=== PATIENT | male | born 1945 | race Caucasian/White ===

== ENCOUNTER 2021-01-24 10:49 | Outpatient (RCR) | payer MEDICARE, OTHER, SELFPAY | END 2021-01-24 23:59 | LOC: IMMUN 10:49 | PROVIDERS: PCP Nurse Practitioner Family; Referring Provider Family Medicine; Visit Provider Family Medicine | DX: Z23 Encounter for immunization (principal) | CPT/HCPCS: 0011A; 0012A; 91301 ==

== ENCOUNTER → 2021-05-31 10:41 | Outpatient (CLI) | payer MEDICARE, OTHER, SELFPAY ==
[2021-05-31 10:59] LABS: Bacteria 0 SEEN /hpf (None Seen); Mucous, Urine 0 SEEN /hpf (<or=2+); Red Blood Cells-Urine 0 SEEN /hpf (0-5); Squamous Epithelial Cells - UA 0 SEEN /hpf (0-5); White Blood Cells 0 SEEN /hpf (0-5)
[2021-05-31 11:16] LABS: Color, Urine Yellow (Yellow); Glucose, Dipstick Normal (Normal); Ketone-Dipstick Negative (Negative); Leukocyte Esterase-Dipstick 25 /ul (Negative); Nitrite-Dipstick Negative (Negative); Occult Blood-Urine 10 /ul (Negative); Protein-Dipstick Negative (Negative); Urine Bilirubin Dipstick Negative (Negative); Urine Clarity Clear (Clear); Urine Urobilinogen 1 mg/dl (Normal)
== END ==
LOC: LAB.FUTURE 10:44 → LABSPEC 10:47
PROVIDERS: PCP Nurse Practitioner Family; Visit Provider Nurse Practitioner Adult Health
DX: R31.9 Hematuria, unspecified (principal)
CPT/HCPCS: 81001

== ENCOUNTER 2021-07-09 10:31 | Outpatient (RCR) | payer MEDICARE, OTHER, SELFPAY ==
--- NOTE | 2021-07-09 11:42 | HP.SP.AD ---
History - History Date of Eval: 07/09/21 Medical Diagnosis (from RX): CVA Date of Onset of Diagnosis: June 11, 2021 Previous speech therapy: Yes Results: While in [facility], dysphagia evaluation- regular diet/thin liquids. Possibly evaluations by speech therapy but patient and are unsure. Other Relevant Medical History/Diagnoses/Surgery: Patient went to [facility] as was life flighted to [facility] and spent 9 days there. Previously he had a TIA 10 years ago with no deficits. Medications related to this diagnosis: lipitor, aspirin, Plavix - Pain Is pain an issue with your current prescribed condition?: No - Personal Occupation: Retired Right Hearing Abillity: Normal Left Hearing Abillity: Normal Visual Assistive Devices: Glasses Patients Living Arrangements: With Significant Other Subjective Cog/Ling/Com - Subjective Cognitive/Linguistic/Communication: The patient's has no concerns regarding thinking skills. She reported that he is able to do all things he did prior to CVA. Objective Cog/Ling/Com - Test Administered Ihbyrydlp-Chrfwybnrw-Kdhyrchvuftvy Assessment Administered: Yes Dtehabnlg-Gcmcoebtmi-Pfbronrdwjrez Assessment: Cognitive ? Linguistic skills were evaluated using patient/family interview, skilled observation and informal evaluation through tasks completed by the patient. - Orientation Orientation: Person, Date, Birthdate, Medical Diagnosis - Answer Yes/No Questions Simple: WNL Complex: WNL - Conversational Tasks Conversational Tasks: WNL - Comments Comments: Patient reports occasional word finding deficits in which he can self correct. - Medication Completing medications independently: WNL - Numerical Skills Balancing Checkbook [place]: reported that he is completing financial tasks without difficulty. - Problem Solving Simple: WNL Complex: WNL - Judgement & Reasoning Judgement/Reasoning: WNL - Cognitive Linguistic Supervision/Saftey Awareness of deficits: WNL Being left home alone: WNL Managing medications: WNL Managing finances: WNL Subjective Dysarthria/Motor - Subjective Subjective: Patient reported right sided weakness while in the hospital. Objective Dysarthira/Motor - Speech Intelligibility Single Words: WNL Sentences: WNL Conversation: WNL - Volume Volume: WNL - Sounds Sounds in Error: No errors noted at any time. - Observation Observation of Apraxia of Speech: No Oral Groping for Placement: No Inconsistent Errors: No - Comments Comments -: Patient stated while in [facility] he had mild dysarthria. He states that it has resolved and during today's evaluation no dysarthria was noted. Plan - Plan Plan: No therapy is recommended at this time as patient's skills are within normal limits. - Recommendations Treatment Warranted: No Education - Patient Instruction Patient Education: Diagnosis Person Taught: Patient, Family Teaching Method: Discussion Response to teaching: Verbalize understanding
== END 2021-07-09 19:00 | disposition home or self-care (01) ==
LOC: SP 10:31
PROVIDERS: PCP Family Medicine
DX: R13.10 Dysphagia, unspecified (principal); R47.01 Aphasia; Z86.73 Personal history of transient ischemic attack (TIA), and cerebral infarction without residual deficits
CPT/HCPCS: 92523

== ENCOUNTER → 2021-08-20 16:52 | Outpatient (CLI) | payer MEDICARE, OTHER, SELFPAY ==
--- NOTE | 2021-08-20 | IMM_PTH ---
PATIENT: AKHIL SMYTH LOC: [facility] U#:[id number] AGE/SX: 80/M ROOM: RE08/20/[address]: Dr. Wilbert Mohan MD : 1945 BED: DIS: SPEC #: [id number] RECD: 08/22/21 11:49 STATUS: KOLBY RERoselia #: [id number] JOHNNY: 08/20/21 00:[address]: Wilbert Mohan DEPT: IMMUNOHISTOCHEMISTRY RECD BY: Carlee Garcia ENTERED: 08/22/21 11:51 SP TYPE: IMMUNO OTHR DR: Dr. Eugenio Leal DO Tissues: B - PROSTATE RIGHT F - PROSTATE LEFT Procedures: 34BE12 (add) P40 (add) 34BE12 (initial) PHYSICIAN & INSTITUTION [place] [id number] SPECIMEN INFORMATION: Tissue Source: B - Right prostate, mid, core biopsy, F - Left prostate, base, core biopsy Clinical Info: Elevated PSA Specimen Number: [id number] B & F CPT code: 89124, 08897 x3 METHODOLOGY: Deparaffinized sections of prefer/formalin-fixed tissue or PAP/DQ stained slides are incubated with monoclonal/polyclonal antibodies/oligonucleotide probes. Localization is made via biotin free immunoperoxidase method. Appropriate controls are performed and reacted as expected. Results on target cell population are indicated in the following table: RESULTS: ANTIBODY / CLONE RESULT Block B P40 (BC28) negative 34BE12 (34BE12) negative Block F P40 (BC28) negative 34BE12 (34BE12) positive These tests were developed and their performance characteristics determined by [facility]. They may not have been cleared or approved by the U.S. Food and Drug Administration. The FDA has determined that such clearance or approval is not necessary. The above immunohistochemical/dualISH markers are ordered and reviewed by the Pathologist. INTERPRETATION: B. Right prostate, mid, core biopsy: Adenocarcinoma. F. Left prostate, base, core biopsy: Focal atypical small acinar proliferation. AM:juvenal 08/23/2021 Case has been reviewed in consultation with Dr. Sexton who concurs with the above diagnosis. IDC:LEVI
--- NOTE | 2021-08-20 08:00 | PROSBIL_PTH ---
PATIENT: AKHIL SMYTH LOC: [facility] U#:[id number] AGE/SX: 80/M ROOM: RE08/20/[address]: Dr. Wilbert Mohan MD : 1945 BED: DIS: SPEC #: [id number] RECD: 08/21/21 10:15 STATUS: KOLBY MARLYS #: [id number] JOHNNY: 08/20/21 08:[address]: Wilbert Mohan DEPT: SURGICAL PATHOLOGY RECD BY: Rogelio Dunham ENTERED: 08/21/21 10:18 SP TYPE: PROST BX YOSEPH DR: Dr. Eugneio Leal DO Tissues: A - PROSTATE RIGHT B - PROSTATE RIGHT C - PROSTATE RIGHT D - PROSTATE LEFT E - PROSTATE LEFT F - PROSTATE LEFT Procedures: PROSTATE BX HEADER OPERATION: Prostate biopsy PRE-OP DIAGNOSIS: R97.20 TISSUE SUBMITTED: A - Right apex, B - Right mid, C - Right base, D - Left apex, E - Left mid, F - Left base MICROSCOPIC DIAGNOSIS A. Right prostate, apex, core biopsy: Adenocarcinoma. [place] grade: 7 (3+4) Cores involved: 1 out of 1 core Tissue involved: 45% Greatest tumor length: 4 millimeters B. Right prostate, mid, core biopsy: Adenocarcinoma. Chandler grade: 6 (3+3) Cores involved: 1 out of 1 core Tissue involved: 10% Greatest tumor length: 2.5 millimeters See comment. C. Right prostate, base, core biopsy: Adenocarcinoma. [place] grade: 7 (3+4) Cores involved: 1 out of 1 core Tissue involved: 45% Greatest tumor length: 4 millimeters Perineural invasion: Present D. Left prostate, apex, core biopsy: Benign prostatic tissue. E. Left prostate, mid, core biopsy: Benign prostatic tissue. F. Left prostate, base, core biopsy: Focal glandular atrophy. See comment. AM:juvenal 08/22/2021 COMMENT B & F - Immunohistochemistry ([id number]) supports the above diagnosis. Case has been reviewed in consultation with Dr. Sexton who concurs with the above diagnosis. IDC:LEVI MICROSCOPIC DESCRIPTION Slides are reviewed. GROSS DESCRIPTION A - Received is one container designated prostate, right apex. The specimen consists of one elongated fragment of light jones-white soft tissue measuring 1.5 cm in length and 0.1 cm in diameter. The specimen is totally submitted in one cassette. B - Received is one container designated prostate, right mid. The specimen consists of one elongated fragment of light jones-white soft tissue measuring 1 cm in length and 0.1 cm in diameter. The specimen is totally submitted in one cassette. C - Received is one container designated prostate, right base. The specimen consists of one elongated fragment of light jones-white soft tissue measuring 1.2 cm in length and 0.1 cm in diameter. The specimen is totally submitted in one cassette. D - Received is one container designated prostate, left apex. The specimen consists of one elongated fragment of light jones-white soft tissue measuring 1.1 cm in length and 0.1 cm in diameter. The specimen is totally submitted in one cassette. E - Received is one container designated prostate, left mid. The specimen consists of one elongated fragment of light jones-white soft tissue measuring 1 cm in length and 0.1 cm in diameter. The specimen is totally submitted in one cassette. F - Received is one container designated prostate, left base. The specimen consists of one elongated fragment of light jones-white soft tissue measuring 1.1 cm in length and 0.1 cm in diameter. The specimen is totally submitted in one cassette. / SJ:rg 08/21/21 TC:0 CPT: G0146
== END ==
PROVIDERS: PCP Family Medicine; Visit Provider Urology
DX: R97.20 Elevated prostate specific antigen [PSA] (principal)
CPT/HCPCS: 88305; 88341; 88342; G0416

== ENCOUNTER → 2021-09-05 07:18 | Outpatient (CLI) | payer MEDICARE, OTHER, SELFPAY ==
--- NOTE | 2021-09-05 07:21 | CT_ITS ---
STUDY: CT PELVIS WITH CONTRAST REASON FOR EXAM: Male, 76 years old. PROSTATE CA RADIATION DOSAGE (If Supplied By Facility): CTDIvol = ( 15.54 ) mGy, DLP = ( 557.05 ) mGycm TECHNIQUE: Transaxial imaging of the pelvis was performed without oral contrast. IV 100mL Isovue-370 was administered intravenously. Individualized dose optimization techniques were used for this CT. COMPARISON: None. FINDINGS: Areas of increased attenuation/ visualized along the periphery of the prostate gland best visualized on coronal series 601 image 16 ill-defined 1.9 cm area of enhancement visualized within the center of the prostate gland visualized on axial series 2 image 59. Mild irregularity in the contour of the prostate gland but no evidence of stranding of the adjacent fat planes is visualized. No evidence of masses or stranding of the ischiorectal fossa bilaterally. No evidence of lymphadenopathy in the adjacent pelvic soft tissues. The seminal vesicles are unremarkable bilaterally. Unremarkable attenuation of the fat planes medial to the pelvic ceja. No evidence of prominent lymph nodes along the iliac vessels. No evidence of retroperitoneal lymph nodes is seen. No evidence of lytic or sclerotic bone lesion is seen, degenerative bone changes are seen. Subtle bilateral inguinal lymph nodes are visualized largest on the left inguinal region measuring 1.6 cm but demonstrates a fatty hilum seen on axial series 2 image 58. Mild thickening of the wall of the urinary bladder is visualized but no evidence of irregularity in its contour to suggest a wall mass. Scattered diverticular disease visualized in the large bowel but no evidence of acute diverticulitis is seen. Small bowel loops are unremarkable. No evidence of masses in the peritoneal fat planes. 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 CT/Pelvis WITH IV Contrast IMPRESSION: Areas of increased enhancement visualized within the prostate gland with irregularity in contour of the prostate gland consistent with the diagnosis of prostate cancer. No evidence of adjacent lymphadenopathy or masses, no evidence of distant lymph nodes or masses. No evidence of bone lesions. Electronically Signed: Wyatt Shelley MD at 11:25 EDT Tel , Service support ,
[2021-09-05 07:35] LABS: CREATININE FINGERSTICK 0.8 mg/dL (0.70-1.30); EGFR FINGERSTICK > 60.0000 mL/min (>60)
== END ==
PROVIDERS: PCP Family Medicine; Referring Provider Urology; Visit Provider Urology
DX: C61 Malignant neoplasm of prostate (principal)
CPT/HCPCS: 72193; Q9967

== ENCOUNTER → 2021-09-10 08:22 | Outpatient (CLI) | payer MEDICARE, OTHER, SELFPAY ==
--- NOTE | 2021-09-10 08:41 | NM_ITS ---
CLINICAL: 76-year-old male with reported history of carcinoma of the prostate. WHOLE BODY 99m Tc MDP RADIONUCLIDE BONE SCINTIGRAPHY COMPARISON: CT of the pelvis report 09/05/2021 FINDINGS: Following the intravenous administration of 25.6 mCi of 99m Tc MDP, whole body bone images reveal: 1. Increased radiopharmaceutical concentration is demonstrated in the glenohumeral, acromioclavicular and sternoclavicular compartments of both shoulders, fourth and fifth lumbar vertebra, the right knee, the right ankle, right posterior ninth and 10th ribs at the costovertebral junction. 2. The remaining skeletal structures are scintigraphically unremarkable with normal-appearing renal images and urinary bladder activity identified. A presumably asymptomatic left knee arthroplasty is demonstrated with accentuated distal tibial component uptake identified most consistent with normal postsurgical change. NM/Bone Scan Whole Body IMPRESSION: 1. The increase in radiopharmaceutical concentration observed in the bilateral shoulders, lower lumbar spine, right knee, right ankle, the ninth and 10th thoracic vertebra is most consistent with degenerative arthritis. 2. There is no definitive typical scintigraphic evidence of diffuse axial skeletal metastatic disease on the current examination. Electronically Signed: Armand Silva DO at 21:17 EDT Tel , Service support ,
== END ==
PROVIDERS: PCP Family Medicine; Referring Provider Urology; Visit Provider Urology
DX: C61 Malignant neoplasm of prostate (principal)
CPT/HCPCS: 78306; A9503

== ENCOUNTER → 2021-09-20 10:18 | Outpatient (CLI) | payer MEDICARE, OTHER, SELFPAY ==
--- NOTE | 2021-09-20 10:45 | MRI_ITS ---
MR Prostate WO/W Contrast 09/20/2021 10:45 AM COMPARISON: None CLINICAL HISTORY: 76 yo man with known prostate Ca TECHNIQUE: Standard prostate MRI protocol was used with 18 cc of IV Dotarem. FINDINGS: Prostate volume: 14.9 cc Length of membranous urethra: 9 mm Post-biopsy hemorrhage: Yes Multiparametric MR evaluation: Heterogeneous appearance of the central gland is consistent with benign prostatic hyperplasia. Lesion 1: LOCATION - 1.3 x 1 cm T2 hypointense lesion in the right posterolateral peripheral zone at the base (image 15, series 5). T2 - PIRADS 4 DWI - PIRADS 4 DCE - positive Overall PI-RADS v2 score = PIRADS 4 Capsular margin and neurovascular bundle: No definite extracapsular extension. Seminal vesicles: No definite involvement. Lymph nodes: No lymphadenopathy in the field of view. Bones: No suspicious lesions in the field of view. MRI/Pelvis W/WO Contrast IMPRESSION: 1.3 cm T2 hypointense lesion in the right posterolateral PZ near the base with increased signal on DWI and decreased signal on ADC consistent with a PI-RADS 4 lesion. However, this area is also bright on T1 weighted imaging signifying post-biopsy hemorrhage, which can also exhibit the same characteristics as prostate cancer. There are two other areas of post-biopsy hemorrhage as well. No lymphadenopathy. Electronically Signed: Vince Goetz MD at 22:11 EDT Tel , Service support ,
== END ==
PROVIDERS: PCP Family Medicine; Referring Provider Urology; Visit Provider Urology
DX: C61 Malignant neoplasm of prostate (principal)
CPT/HCPCS: 72197; A9575

== ENCOUNTER 2021-10-12 12:47 | Day surgery (SDC) | payer MEDICARE, OTHER, SELFPAY ==
[2021-10-12 13:20] VITALS: BP 182/67; PULSE 72; RESP 18; TEMP 36.3; O2SAT 100; BMI 22.4
[2021-10-12] MEDS: Lactated Ringers 1,000 ML 15 ML IV (13:20)
[2021-10-12] MEDS: Cefazolin 2 GM in 0.9% Normal Saline 100 ML IV (15:45)
--- NOTE | 2021-10-12 15:58 | HP.PCM_ITS ---
HPI - General HPI Narrative AKHIL SMYTH, is a 76 M who presents for placement of spacer gel and gold markers, planning treatment for prostate ca with XRT [facility] Medical History (Updated 10/10/21 @ 14:[address] Elias Gill DO) Cancer Cardiology follow-up encounter Former smoker High cholesterol History of atrial fibrillation History of echocardiogram History of stress test Hypertension Injury of head and neck Stroke/cerebrovascular accident Thyroid disease Wears glasses Home Medications aspirin 81 mg tablet,delayed release 81 mg PO DAILY 10/01/21 [History Last Taken Unknown] coenzyme Q10 10 mg capsule 10 mg PO ONCE 10/01/21 [History Last Taken Unknown] folic acid 20 mg capsule 20 mg PO DAILY 10/01/21 [History Last Taken Unknown] levothyroxine 100 mcg capsule 100 mcg PO DAILY 10/01/21 [History Last Taken Unknown] multivitamin 1 tab PO DAILY 10/01/21 [History Last Taken Unknown] rosuvastatin 5 mg tablet 5 mg PO DAILY 10/01/21 [History Last Taken Unknown] tumeric 100 mg-keanu 150 mg-olive 50 mg-oreg 150 mg-caprylate capsule 1 cap PO DAILY 10/01/21 [History Last Taken Unknown] lorazepam 0.5 mg tablet 0.5 mg PO DAILY PRN #2 tab 10/10/21 [Rx Last Taken Unknown] ciprofloxacin HCl [Cipro] 500 mg PO BID #10 tab 10/12/21 [Rx Last Taken Unknown] Allergy/AdvReac Type Severity Reaction Status Date / Time No Known Allergies Allergy Verified 10/09/21 10:36 Family History (Updated 10/01/21 @ 13:16 by Yaneth March RN) Brother Cancer PROSTATE Brother Heart disease Surgical History (Updated 10/09/21 @ 10:46 by Charlotte Palacios) History of cardiac catheterization History of total knee replacement (TKR) Hx of colectomy Hx of heart artery stent Hx of heart bypass surgery Social History (Updated 10/01/21 @ 13:14 by Yaneth March RN) adopted: No household members: spouse housing: house Smoking Status: Former smoker Tobacco: How many years used: 15 second hand exposure: No Vital Signs Vital Signs Vital Signs: 10/12/21 13:20 Temperature 97.4 F L Temperature Source Temporal Pulse Rate 72 Respiratory Rate 18 Respiratory Pattern Normal Blood Pressure 182/67 H Blood Pressure Mean 105 Blood Pressure Source Monitor Blood Pressure Position Sitting Blood Pressure Location Left Arm Pulse Ox 100 Oxygen Delivery Method Room Air Weight Weight: 71 kg Body Mass Index (BMI) 22.4
--- NOTE | 2021-10-12 15:59 | PCM.DC ---
Discharge Instructions Diet Discharge Diet: No restrictions Activity Discharge Activity: Return to Normal Activity and May Not Drive (while taking narcotic pain medications.) Dressing / Incision Call your doctor if you observe: Fever of 101 or Higher Follow Up Care Please Follow Up With: Wilbert Mohan MD When: Call [phone] for an appointment Test Results: Test results from this visit will be discussed in further detail at your follow-up appointment, if applicable. Discharge Plan Admission Primary Reason for Your Visit: gold markers and spacer gel Attending Provider: Wilbert Mohan Primary Care Provider: Eugenio Leal Discharge Orders/Prescriptions Prescriptions: New ciprofloxacin HCl [Cipro] 500 mg tablet 500 mg PO BID Qty: 10 RF: 0 Continued levothyroxine 100 mcg capsule 100 mcg PO DAILY RF: 0 rosuvastatin [Crestor] 5 mg tablet 5 mg PO DAILY RF: 0 aspirin 81 mg tablet,delayed release (DR/EC) 81 mg PO DAILY RF: 0 multivitamin Tablet 1 tab PO DAILY RF: 0 coenzyme Q10 [Co Q-10] 10 mg capsule 10 mg PO ONCE RF: 0 othrhla-lbpf-ruewf-oreg-capryl 100 mg-150 mg- 50 mg-150 mg capsule 1 cap PO DAILY RF: 0 folic acid 20 mg capsule 20 mg PO DAILY RF: 0 lorazepam [Ativan] 0.5 mg tablet 0.5 mg PO DAILY PRN (Reason: pre-procedure anxiety) Qty: 2 RF: 0 Referrals / Follow Up: Eugenio Leal DO [Primary Care Provider] - Wilbert Mohan MD [STAFF PHYSICIAN] - Disposition Disposition (needs filled in before D/C Order can be placed): Home, Self Care
--- NOTE | 2021-10-12 15:59 | PCM.OPRPT ---
Report of Operation Date of Procedure: 10/12/21 Pre-Operative Diagnosis: prostate cancer Post-Operative Diagnosis: same Surgery/Procedure Performed:: placement of gold fiducial markers for radiation therapy and spacer gel matrix per request of radiation oncology. Description of Surgical Findings:: The penis and testicles were prepped and draped in usual sterile fashion, ultrasound probe was placed into the rectum and biplanar ultrasound was performed on the prostate. Identified the base mid and apex of the prostate identified the transition zone prostate. Then using a needle the first lift supervisor was placed into the right base of the prostate, the second lift supervisor was placed in the left base of the prostate, and the third core marker was placed in the right apex of the prostate after all 3 markers were placed the placement of the markers were confirmed by ultrasonography. I then introduced a biplanar ultrasound probe into the rectum and performed ultrasonography and identified the Denonvilliers' fascia the prostate mid base and apex and seminal vesicles. The spacer gel mix was then prepared on the back table per manufactures instruction. Under ultrasound guidance in the midline perineum a bevel needle down we advanced through the perineum below the prostate into the space of Denonvilliers' fascia. This space which could be identified by ultrasound with a bright white layer between the prostate and the rectum. I then injected a puff of normal saline to identify the space further. After I confirmed that the needle was in the correct space in the mid prostate and the space of Denonvilliers' fascia between the rectum and the prostate. Then over the course of 15 seconds the gel matrix was injected slowly there was nice separation between the prostate and the rectum at the gel matrix was injected. The position of the gel matrix was confirmed by ultrasound. Then the injection needle was removed intact. Patient's perineum was cleaned patient was taken out of stirrups and then taken back to the PACU in good condition. Surgeon: álvaro Type of Anesthesia: General Admit VTE Documentation VTE Present on Admission: No VTE Mechan Device Prophylaxis: SCD's VTE Pharm Prophylaxis ordered?: No
[2021-10-12 16:10] VITALS: BP 155/72; BP 182/67; PULSE 61; RESP 16; TEMP 36; O2SAT 97
[2021-10-12 16:15] VITALS: BP 152/73; BP 182/67; PULSE 61; RESP 16; O2SAT 97
[2021-10-12 16:26] VITALS: BP 168/74; BP 182/67; PULSE 58; RESP 16; O2SAT 98
[2021-10-12 16:45] VITALS: BP 168/72; BP 182/67; PULSE 56; RESP 16; TEMP 36; O2SAT 99
[2021-10-12 17:19] VITALS: BP 157/57; BP 182/67; PULSE 58; RESP 16; TEMP 36.1; O2SAT 100
== END 2021-10-12 17:21 | disposition home or self-care (01) ==
LOC: SDC 12:48 → AC 12:50
PROVIDERS: PCP Family Medicine; Referring Provider Urology; Visit Provider Urology
PROC: (CPT 55874; principal; 2021-10-12 14:35)
DX: C61 Malignant neoplasm of prostate (principal); E07.9 Disorder of thyroid, unspecified; E78.00 Pure hypercholesterolemia, unspecified; I10 Essential (primary) hypertension; I48.91 Unspecified atrial fibrillation; Z79.82 Long term (current) use of aspirin; Z87.891 Personal history of nicotine dependence; Z86.73 Personal history of transient ischemic attack (TIA), and cerebral infarction without residual deficits; Z90.49 Acquired absence of other specified parts of digestive tract; Z96.659 Presence of unspecified artificial knee joint
CPT/HCPCS: 00902; 55876; J7120; J2405

== ENCOUNTER → 2021-10-20 08:03 | Outpatient (CLI) | payer MEDICARE, OTHER, SELFPAY ==
--- NOTE | 2021-10-20 08:04 | MRI_ITS ---
INDICATION: treatment planning for radiation therapy EXAMINATION: MRI - MR Pelvis Male W/O Contrast TECHNIQUE: Multiplanar and multisequence MR images were performed of the pelvis for radiation planning purposes. . IV Contrast Dosage and Agent: None. COMPARISON: 18 October 2021 and 20 September 2021 FINDINGS: Please refer to prior diagnostic MR of the pelvis/prostate for diagnostic information. This is a treatment planning scan with general survey of the pelvis. As per prior report there is a nodule in the right posterior peripheral zone. Pelvic soft tissues are normal. Skeletal pelvis is intact. There is no pelvic lymphadenopathy. MRI/Pelvis (Routine) IMPRESSION: Radiation planning scan of the pelvis for prostate cancer. Refer to prior for diagnostic description. Electronically Signed: Giorgio Murphy MD at 20:36 EST Tel , Service support ,
== END ==
PROVIDERS: PCP Family Medicine; Referring Provider Student in an Organized Health Care Education/Training Program; Visit Provider Student in an Organized Health Care Education/Training Program
DX: C61 Malignant neoplasm of prostate (principal)
CPT/HCPCS: 72195

== ENCOUNTER → 2023-12-03 | Outpatient (CLI) | payer MEDICARE, OTHER, SELFPAY ==
[2023-12-03 11:23] LABS: Anion Gap 2 (5-15); BUN 17 mg/dL (7-18); BUN/Creat Ratio 16.5 RATIO (10-20); Calcium,Total 9.5 mg/dL (8.5-10.1); Chloride 104 mmol/L (98-107); Creatinine, Serum 1.03 mg/dL (0.70-1.30); EST Glomerular Filtration Rate 75 mL/min (>60); Est Glom Filt Rate - Afr Amer 90 mL/min (>60); Glucose 97 mg/dL (74-106); Potassium 4.1 mmol/L (3.5-5.1); Sodium Level 136 mmol/L (136-145)
== END | disposition home or self-care (01) ==
LOC: PAVLAB 10:24
PROVIDERS: PCP Family Medicine; Referring Provider Surgery; Visit Provider Surgery
DX: I71.40 Abdominal aortic aneurysm, without rupture, unspecified (principal)
CPT/HCPCS: 36415; 80048

== ENCOUNTER 2024-06-10 09:00 | Day surgery (SDC) | payer MEDICARE, OTHER, SELFPAY ==
--- NOTE | 2024-06-10 09:07 | EKG12_ITS ---
Test Reason : PREOP Blood Pressure : / mmHG Vent. Rate : 064 BPM Atrial Rate : 064 BPM P-R Int : 236 ms QRS Dur : 082 ms QT Int : 406 ms P-R-T Axes : 086 067 118 degrees QTc Int : 418 ms Sinus rhythm with 1st degree A-V block Septal infarct , age undetermined ST & T wave abnormality, consider lateral ischemia Abnormal ECG Confirmed by Bridger Wolfe ([id number]), web content editor MARCELINO SCHMIDT ([id number]) on 06/11/2024 6:23:26 AM Referred By: Louis Mario Confirmed By:Bridger Wolfe
[2024-06-10 10:34] LABS: Hemoglobin 14.2 g/dL (13.0-16.5); Mean Corp Hgb Conc 33.8 g/dL (32-36); Mean Corpuscular Hgb 32.9 pg (27.0-32.0); Mean Corpuscular Volume 97.2 fL (80-94); Mean Platelet Vol. 10.3 fl (6.2-12.0); Platelet Count 217 K/mm3 (150-450); RBC Distribution Width SD 46.5 fl (35.1-43.9); Red Blood Count 4.32 M/mm3 (4.6-6.2); White Blood Count 7.7 K/mm3 (4.4-11.0)
[2024-06-10 11:00] LABS: Anion Gap 3 (5-15); BUN 20 mg/dL (7-18); BUN/Creat Ratio 20.2 RATIO (10-20); Chloride 104 mmol/L (98-107); Creatinine, Serum 0.99 mg/dL (0.70-1.30); EST Glomerular Filtration Rate 78 mL/min (>60); Est Glom Filt Rate - Afr Amer 94 mL/min (>60); Glucose 91 mg/dL (74-106); Sodium Level 136 mmol/L (136-145)
[2024-06-10 11:44] LABS: Thyroid Stim Hormone (TSH) 0.76 uIU/mL (0.358-3.74)
== END 2024-06-14 10:35 | disposition home or self-care (01) ==
LOC: SDC 02-02 16:20
PROVIDERS: Anesthesiology; PCP Family Medicine; Referring Provider Surgery Trauma Surgery; Visit Provider Surgery Trauma Surgery
DX: Z01.812 Encounter for preprocedural laboratory examination (principal); Z01.810 Encounter for preprocedural cardiovascular examination; Z01.818 Encounter for other preprocedural examination; Z53.9 Procedure and treatment not carried out, unspecified reason; R94.31 Abnormal electrocardiogram [ECG] [EKG]; I44.0 Atrioventricular block, first degree
CPT/HCPCS: 36415; 80048; 84443; 85027; 86850; 86900; 86901; 93005

== ENCOUNTER → 2025-02-16 | Outpatient (CLI) | payer MEDICARE, OTHER, SELFPAY ==
--- NOTE | 2025-02-16 08:58 | ART_ITS ---
Reason For Study Reason For Study: S/P EVAR Procedure A bilateral lower extremity continuous wave Doppler with analog waveform analysis and ankle brachial indexes. Left Segmental Pressures Left brachial= 190mmHg. Left posterior tibial artery = 215mmHg. Left dorsalis pedis artery = 210mmHg. Left digit = 117 mmHg. The left dorsalis pedis waveforms are triphasic. The left posterior tibial artery waveforms are triphasic. Right Segmental Pressures Right brachial= 196mmHg. Right posterior tibial artery = 154mmHg. Right dorsalis pedis artery = 154mmHg. Right digit = 90 mmHg. The right dorsalis pedis waveforms are biphasic. The right posterior tibial artery waveforms are biphasic. Indices The right ankle brachial index by the dorsalis pedis is 0.79. The right ankle brachial index by the posterior tibial artery is 0.79. The right digital-brachial index is 0.46. The left ankle brachial index by the dorsalis pedis is 1.07. The left ankle brachial index by the posterior tibial artery is 1.10. The left digital-brachial index is 0.60. VL/Ankle Brachial Index Interpretation Summary Right APRIL 0.79, moderate arterial insufficiency. Doppler/PVR waveforms of the r ight ankle moderately diminished at rest. Left APRIL 1.1, normal. Doppler/PVR waveforms of the left ankle normal at rest. Ordering Physician: Mariella Estrada Referring Physician: Mariella Estrada Performed By: Afsaneh Oliveros
--- NOTE | 2025-02-16 08:58 | AAVD_ITS ---
Reason For Study Reason For Study: S/P EVAR Aorta Measurements Aorta Doppler Measurements Proximal aorta measures1.96x1.87cm. in cross-sectional axis.Peak systolic flow velocities within the proximal aorta Proximal aorta measures1.85cm. in longitudinal axis. measure 68.7 cm/sec. Mid aorta measures2.23x2.40cm. in cross-sectional axis. Peak systolic flow velocities within the mid aorta measure Mid aorta measures2.32cm. in longitudinal axis. 40.4 cm/sec. Aorta Distal: Aorta Distal: Limb 1, 1.25x1.26x1.19cm. Limb 1, 85.7 cm/s. Limb 2, 1.33x1.36x1.14cm. Limb 2, 37.3 cm/s. Residual Sac, 4.18x4.78x4.51cm. Left Iliac Artery Left iliac artery measures 1.11 cm. in the longitudinal axis. Left iliac artery measures 1.31x1.42 cm. in the cross- sectional axis. Peak systolic velocity in the left iliac artery measures 93.1 cm/sec. Right Iliac Artery Right iliac artery measures 1.16 cm. in the longitudinal axis. Right iliac artery measures 1.41x1.49 cm. in the cross- sectional axis. Peak systolic velocity in the right iliac artery measures 142.5 cm/sec. Procedure Aorta IVC Iliac vasculature or bypass grafts [id number]. Exam performed in department. VL/Abd Aortic/IVC Duplex scan Interpretation Summary Patent endograft with normal velocities and no evidence of stenosis. 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 Ordering Physician: Mariella Estrada Referring Physician: Oswaldo Holbrook M.D. Performed By: Afsaneh Oliveros
== END | disposition home or self-care (01) ==
PROVIDERS: PCP Family Medicine; Referring Provider Physician Assistant; Visit Provider Physician Assistant
DX: I71.43 Infrarenal abdominal aortic aneurysm, without rupture (principal); Z48.812 Encounter for surgical aftercare following surgery on the circulatory system; Z98.890 Other specified postprocedural states; Z86.79 Personal history of other diseases of the circulatory system
CPT/HCPCS: 93922; 93978

== ENCOUNTER → 2025-08-19 | Outpatient (CLI) | payer MEDICARE, OTHER, SELFPAY ==
--- NOTE | 2025-08-19 09:06 | ART_ITS ---
Reason For Study Reason For Study: S/P EVAR Procedure A bilateral lower extremity continuous wave Doppler with analog waveform analysis and ankle brachial indexes. Left Segmental Pressures Left brachial= 171mmHg. Left posterior tibial artery = 171mmHg. Left dorsalis pedis artery = 172mmHg. Left digit = 125 mmHg. The left dorsalis pedis waveforms are triphasic. The left posterior tibial artery waveforms are triphasic. Right Segmental Pressures Right brachial= 176mmHg. Right posterior tibial artery = 129mmHg. Right dorsalis pedis artery = 107mmHg. Right digit = 77 mmHg. The right dorsalis pedis waveforms are biphasic. The right posterior tibial artery waveforms are biphasic. Indices The right ankle brachial index by the dorsalis pedis is 0.61. The right ankle brachial index by the posterior tibial artery is 0.73. The right digital-brachial index is 0.44. The left ankle brachial index by the dorsalis pedis is 0.98. The left ankle brachial index by the posterior tibial artery is 0.97. The left digital-brachial index is 0.71. VL/Ankle Brachial Index Interpretation Summary Right APRIL 0.73, moderate arterial insufficiency. Doppler/PVR waveforms of the r ight ankle moderately diminished at rest. Left APRIL 0.98, mild arterial insufficiency. Doppler/PVR waveforms of the left a nkle normal at rest. Ordering Physician: Mariella Estrada Referring Physician: Eugenio Leal Performed By: Anna Messer RVT
--- NOTE | 2025-08-19 09:06 | AAVD_ITS ---
Reason For Study Reason For Study: S/P EVAR Aorta Measurements Aorta Doppler Measurements Proximal aorta measures1.98 x 1.96cm. in cross-sectional Peak systolic flow velocities within the proximal aorta axis. measure 79.6 cm/sec. Proximal aorta measures1.97cm. in longitudinal axis. Peak systolic flow velocities within the mid aorta measure Mid aorta measures2.55 x 2.53cm. in cross-sectional axis. 56 cm/sec. Mid aorta measures2.48cm. in longitudinal axis. Aorta Distal: Aorta Distal: Limb 1, 45.1 cm/sec. Limb 1, 1.19 x 1.19 x 1.20 cm. Limb 2, 63.2 cm/sec. Limb 2, 1.22 x 1.22 x 1.32 cm. Residual Sac, 4.26 x 4.43 x 4.36 cm. Left Iliac Artery Left iliac artery measures 1.15 x 1.09 cm. in the cross-sectional axis. Left iliac artery measures 1.18 cm. in the longitudinal axis. Peak systolic velocity in the left iliac artery measures 93 cm/sec. Right Iliac Artery Right iliac artery measures 1.25 x 1.22 cm. in the cross-sectional axis. Right iliac artery measures 1.30 cm. in the longitudinal axis. Peak systolic velocity in the right iliac artery measures 78.5 cm/sec. Procedure Aorta IVC Iliac vasculature or bypass grafts [id number]. Exam performed in department. VL/Abd Aortic/IVC Duplex scan Interpretation Summary Patent endograft with normal velocities and no evidence of stenosis. 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 Ordering Physician: Mariella Estrada Referring Physician: Eugenio Leal Performed By: Anna Messer RVT
== END | disposition home or self-care (01) ==
LOC: CVS 09:03
PROVIDERS: PCP Family Medicine; Referring Provider Physician Assistant; Visit Provider Physician Assistant
DX: Z48.812 Encounter for surgical aftercare following surgery on the circulatory system (principal); Z98.890 Other specified postprocedural states; Z86.79 Personal history of other diseases of the circulatory system
CPT/HCPCS: 93922; 93978